=== PATIENT | female | born 1970 | race Caucasian/White ===

== ENCOUNTER 2016-11-04 06:24 | Day surgery (SDC) ==
[2016-11-04] MEDS: AK-DILATE 10% OPTH SOL OP PRN ×3 (06:48→06:58)
[2016-11-04] MEDS: OCUFEN 0.03% OPTH SOL OP PRN ×3 (06:48→07:18)
[2016-11-04] MEDS: CYCLOGYL 2% OPTH OP PRN ×3 (06:48→06:58)
[2016-11-04] MEDS: TETRACAINE 0.5% UNIT-DOSE OP PRN ×4 (06:48→07:18)
[2016-11-04] MEDS ORDERED: TETRACAINE 0.5% OPTH SOL OP ONE (06:52)
[2016-11-04] MEDS ORDERED: LIDOCAINE 1% 20 ML MDV ID ONE (06:53)
[2016-11-04] MEDS ORDERED: BETADINE OPTH PREP OP ONE (07:58)
[2016-11-04] MEDS ORDERED: VERSED ONE (08:00)
[2016-11-04] MEDS ORDERED: SUBLIMAZE ONE (08:00)
[2016-11-04] MEDS ORDERED: LIDOCAINE 1 % AMP 5 ML (SUTURES) INJ ONE (08:00)
[2016-11-04] MEDS ORDERED: DIPRIVAN 20 ML VIAL IVP ONE (08:00)
[2016-11-04] MEDS ORDERED: EPINEPHRINE 1:1,000 AMP IR ONE (08:10)
[2016-11-04] MEDS ORDERED: TIMOPTIC 0.5% OPTH OP ONE (08:12)
[2016-11-04] MEDS ORDERED: DIAMOX ONE (08:45)
[2016-11-04] MEDS ORDERED: DIAMOX PO ONE (08:45)
[2016-11-04 09:16] VITALS: BP 119/78; TEMP 98
--- NOTE | 2016-11-05 10:10 | OP ---
PREOPERATIVE DIAGNOSIS: POSTERIOR SUBCAPSULAR CATARACT, LEFT EYE. POSTOPERATIVE DIAGNOSIS: SAME. OPERATION PHACOEMULSIFICATION ASPIRATION OF CATARACT LEFT EYE. PLACEMENT OF POSTERIOR CHAMBER LENS. PHACO TIME 6.8 SECONDS AT 3% POWER. LENS MODEL TECHA [id number]. DIOPTER +24.5D. TECHNIQUE: CLEAR CORNEA. ANESTHESIA: TOPICAL ANESTHESIA W/ANESTHESIA MONITORING. OPERATIVE REPORT: Topical anesthesia consisting of Tetracaine was applied to the cornea and Xylocaine Methyl Paraben free of MFP was injected intracamerally into the anterior chamber. The patient was then brought into the operating room , prepped and draped in the usual ophthalmic manner. A lid speculum was placed and the operating microscope was used. A paracentesis was made at the 3 o' clock position. A clear corneal incision was made just out to the limbus. The anterior chamber was entered just inside the clear cornea. Viscoelastic was injected into the anterior chamber. A capsulotomy was performed with a bent # 27 gauge needle. Phacoemulsification was then performed in the posterior chamber. After completion of the phacoemulsification, residual cortical material was aspirated with the irrigation-aspiration system. The posterior capsule was polished. Viscoelastic was injected into the anterior and posterior chambers to inflate the capsular bag. Lens were placed via an Unfolder system and stabilized in the bag. Viscoelastic was removed from the anterior chamber. The wound was checked for any leakage. The four sponges were removed from the fornix. Topical antibiotic steroid and nonsteroidal drops were also applied to the cornea. A Mckenzie shield was applied. The patient left the operating room in good condition without any complications. INTRAOPERATIVE MEDICATIONS: Xylocaine Methyl Paraben Free MPF MTDD
== END 2016-11-04 09:30 | disposition home or self-care (01) ==
LOC: SURG 06:24
PROVIDERS: ATTEND Ophthalmology
DX: H25.042 Posterior subcapsular polar age-related cataract, left eye (principal)

== ENCOUNTER 2016-12-02 06:31 | Day surgery (SDC) ==
[2016-12-02] MEDS: CYCLOGYL 2% OPTH OP PRN ×3 (06:58→07:10)
[2016-12-02] MEDS: TETRACAINE 0.5% UNIT-DOSE OP PRN ×3 (06:58→07:30)
[2016-12-02] MEDS: OCUFEN 0.03% OPTH SOL OP PRN ×3 (06:58→07:30)
[2016-12-02] MEDS: AK-DILATE 10% OPTH SOL OP PRN ×3 (06:58→07:10)
[2016-12-02] MEDS ORDERED: LIDOCAINE 1% 20 ML MDV ID ONE (07:20)
[2016-12-02] MEDS ORDERED: LIDOCAINE 1% 20 ML MDV ONE (07:20)
[2016-12-02] MEDS ORDERED: VERSED ONE (07:40)
[2016-12-02] MEDS ORDERED: BETADINE OPTH PREP OP ONE (07:55)
[2016-12-02] MEDS ORDERED: LIDOCAINE 1 % AMP 2 ML (SUTURES) INJ ONE (08:00)
[2016-12-02] MEDS ORDERED: ADRENALIN 1:1000 SDV IR ONE (08:00)
[2016-12-02] MEDS ORDERED: TIMOPTIC 0.5% OPTH OP ONE (08:18)
[2016-12-02] MEDS ORDERED: DIAMOX ONE (08:51)
[2016-12-02] MEDS ORDERED: DIAMOX PO ONE (08:51)
[2016-12-02 09:09] VITALS: BP 122/86; TEMP 98.2
--- NOTE | 2016-12-02 12:49 | OP ---
PREOPERATIVE DIAGNOSIS:Advanced Cortical Cataract and Posterior subcapsular cortical right eye 2+ Cortical and 2+ posterior subcapsular cortical. POSTOPERATIVE DIAGNOSIS: SAME. OPERATION PHACOEMULSIFICATION ASPIRATION OF CATARACT RIGHT EYE. PLACEMENT OF POSTERIOR CHAMBER LENS. PHACO TIME 2.5 SECONDS AT 0% POWER. LENS MODEL MARC [id number]. DIOPTER 24.0D. TECHNIQUE: CLEAR CORNEA. ANESTHESIA: TOPICAL ANESTHESIA W/ANESTHESIA MONITORING. OPERATIVE REPORT: Topical anesthesia consisting of Tetracaine was applied to the cornea and Xylocaine Methyl Paraben free of MFP was injected intracamerally into the anterior chamber. The patient was then brought into the operating room , prepped and draped in the usual ophthalmic manner. A lid speculum was placed and the operating microscope was used. A paracentesis was made at the 3 o' clock position. A clear corneal incision was made just out to the limbus. The anterior chamber was entered just inside the clear cornea. Viscoelastic was injected into the anterior chamber. A capsulotomy was performed with a bent # 27 gauge needle. Phacoemulsification was then performed in the posterior chamber. After completion of the phacoemulsification, residual cortical material was aspirated with the irrigation-aspiration system. The posterior capsule was polished. Viscoelastic was injected into the anterior and posterior chambers to inflate the capsular bag. Lens were placed via an Unfolder system and stabilized in the bag. Viscoelastic was removed from the anterior chamber. The wound was checked for any leakage. The four sponges were removed from the fornix. Topical antibiotic steroid and nonsteroidal drops were also applied to the cornea. A Mckenzie shield was applied. The patient left the operating room in good condition without any complications. INTRAOPERATIVE MEDICATIONS: Xylocaine Methyl Paraben Free MPF MTDD
== END 2016-12-02 09:22 | disposition home or self-care (01) ==
LOC: SURG 06:31
PROVIDERS: ATTEND Ophthalmology
DX: H26.8 Other specified cataract (principal); H25.041 Posterior subcapsular polar age-related cataract, right eye

== ENCOUNTER 2017-01-29 08:39 | Emergency (ER) ==
[2017-01-29 08:45] VITALS: BP 139/83; TEMP 97.7; BMI 32.9
[2017-01-29] MEDS ORDERED: ZOFRAN 4 MG/2 ML IVP STA (08:47)
[2017-01-29] MEDS ORDERED: MORPHINE 2 MG/ML SYRINGE IVP STA ×2 (08:47→10:28)
[2017-01-29] MEDS ORDERED: IMITREX SUBCUT STA ×2 (09:01)
--- NOTE | 2017-01-29 09:11 | ED.PDOC ---
General ED Provider: Dr. MOUNA TORRES JR Chief Complaint: Headache Stated Complaint: I have not had a headache this bad in about 8 years- helps to go to bed and sleep; woke up with headache, to work worse, nauseated dry heaves light sensitivity[End]97.7 88 20 100% 139/83 07/01 took motrin and zyrtec has had ultram today nauseated with dry heaves. light sensitivity[End] 97.7 88 20 100% 139/83 07/01 Time Seen by Physician: 09:11 Mode of Arrival: Wheelchair Information Source: Patient Exam Limitations: No limitations Primary Care Provider: KRYSTINA RICO Nursing and Triage Documentation Reviewed and Agree: No Review of Systems - Review Of Systems Constitutional: Reports: No symptoms Eyes: Reports: Photophobia Ears, Nose, Mouth, Throat: Reports: No symptoms Respiratory: Reports: No symptoms Cardiac: Reports: No symptoms GI: Reports: Nausea : Reports: No symptoms Musculoskeletal: Reports: No symptoms Skin: Reports: No symptoms Neurological: Reports: Headache (migraines frontal occipital retro-orbital on right side) Endocrine: Reports: No symptoms Hematologic/Lymphatic: Reports: No symptoms All Other Systems: Other Past Medical History - Past Medical History Previously Healthy: Yes Endocrine: Reports: None Cardiovascular: Reports: None Respiratory: Reports: None Hematological: Reports: None Gastrointestinal: Reports: None Genitourinary: Reports: None Neuro/Psych: Reports: Migraine Musculoskeletal: Reports: None Cancer: Reports: None Last Menstrual Period: none Other Pertinent Past Medical History: fibromyalgia, restless legs - Surgical History General Surgical History: Reports: Hysterectomy (transvaginal tape), Cholecystectomy, Gastric Sleeve (gastric band then sleeve), Other (bilateral cataracts) - Family History Family History: Reports: Unknown - Social History Smoking Status: Never smoker Hx Substance Use: No Alcohol Screening: None Physical Exam - Physical Exam Appearance: Ill-appearing Pain Distress: Moderate Eyes: ANAY, EOMI, Conjunctiva clear ENT: Ears normal, Nose normal, Oropharynx normal Neck: Supple Respiratory: Airway patent, Breath sounds clear, Breath sounds equal, Respirations nonlabored Cardiovascular: RRR, Pulses normal, No rub, No murmur GI/: Soft, Nontender, No masses, Bowel sounds normal, No Organomegaly Musculoskeletal: Normal strength, ROM intact, No edema, No calf tenderness Skin: Warm, Dry, Normal color Neurological: Sensation intact, Motor intact, Reflexes intact, Cranial nerves intact, Alert, Oriented Psychiatric: Affect appropriate, Mood appropriate Re-Evaluation - Re-Evaluation Time of Re-Evaluation: 10:35 Status: Improved (minimal improvement) Vital Signs Stable: Yes Critical Care Note - Critical Care Note Total Time (mins): 0 Course - Course Orders, Labs, Meds: Orders Category Date Time Status ED IV/MEDIPORT/POWERPORT .ONCE EMERGENCY 01/29/17 09:01 Active 0.9 % Sodium Chloride [Saline Flush] MEDS 01/29/17 09:01 Active 1 syr IVF PRN PRN Morphine Sulfate [Morphine 2 mg/ml Syringe] MEDS 01/29/17 08:47 Discontinued 2 mg IVP ONCE STA Morphine Sulfate [Morphine 2 mg/ml Syringe] MEDS 01/29/17 10:28 Discontinued 2 mg IVP ONCE STA Ondansetron HCl/Pf [Zofran 4 mg/2 ml] MEDS 01/29/17 08:47 Discontinued 4 mg IVP ONCE STA Sumatriptan Succinate [Imitrex] MEDS 01/29/17 09:01 Discontinued 6 mg SUBCUT ONCE STA Sumatriptan Succinate [Imitrex] MEDS 01/29/17 09:01 Discontinued [address] ONCE STA CT HEAD W/O CONTRAST Stat RADS 01/29/17 09:10 Completed Medications Generic Name Dose Route Start Last Admin Trade Name Freq PRN Reason Stop Dose Admin Sodium Chloride 1 syr 01/29/17 09:01 Saline Flush IVF PRN PRN To flush IV Discontinued Medications Generic Name Dose Route Start Last Admin Trade Name Freq PRN Reason Stop Dose Admin Morphine Sulfate 2 mg 01/29/17 08:47 01/29/17 09:21 Morphine 2 Mg/Ml Syringe IVP 01/29/17 08:48 2 mg ONCE STA Administration Morphine Sulfate 2 mg 01/29/17 10:28 01/29/17 10:33 Morphine 2 Mg/Ml Syringe IVP 01/29/17 10:29 2 mg ONCE STA Administration Ondansetron HCl 4 mg 01/29/17 08:47 01/29/17 09:21 Zofran 4 Mg/2 Ml IVP 01/29/17 08:48 4 mg ONCE STA Administration Sumatriptan Succinate 6 mg 01/29/17 09:01 01/29/17 09:23 Imitrex SUBCUT 01/29/17 09:02 Not Given ONCE STA Sumatriptan Succinate 6 mg 01/29/17 09:01 01/29/17 09:23 Imitrex SUBCUT 01/29/17 09:02 Not Given ONCE STA Vital Signs: Temp Pulse Resp BP Pulse Ox 01/29/17 08:39 97.7 F 88 20 139/83 100 Departure - Departure Time of Disposition: 11:07 Disposition: HOME SELF-CARE Discharge Problem: Headache Instructions: Migraine Headache (ED) Condition: Good Pt referred to PMD for follow-up: Yes Additional Instructions: no driving for four hours may take two ultram if headache- inform PMD each time you use it for a headache recheck PMD discuss headaches Allergies/Adverse Reactions: Allergies No Known Allergies Allergy (Verified 01/29/17 08:46) Home Medications: Ambulatory Orders Milnacipran HCl [Savella] 50 mg PO BID 01/29/17 Pramipexole Di-HCl [Mirapex] 0.25 mg PO BEDTIME 01/29/17 Tramadol HCl 50 mg PO BID 01/29/17 Disposition Discussed With: Patient
--- NOTE | 2017-01-29 10:05 | CT ---
EXAM: CT BRAIN HISTORY: Recurrent headache TECHNIQUE: CT brain without intravenous contrast. 5-mm axial sections with Reformations. COMPARISON: None FINDINGS: Brain is unremarkable without distinct evidence of hemorrhage or large vessel distribution recent ischemic infarction. There is no suggestion of acute hydrocephalus or subdural fluid collection. N o mass or mass effect. Cranium is within normal limits. Mastoid air cells are aerated. The visualized paranasal sinuses are clear. IMPRESSION: No acute intracranial process.
[2017-01-29] MEDS ORDERED: MORPHINE 4 MG/ML SYRINGE IVP STA (10:27)
== END 2017-01-29 11:55 | disposition home or self-care (01) ==
LOC: ED 08:39
DX: R51 Headache (principal)
CPT/HCPCS: 96374; 96375; 96376; 99283

== ENCOUNTER 2017-07-10 14:26 | Outpatient (CLI) ==
--- NOTE | 2017-07-11 08:49 | MAMMO ---
EXAM: Bilateral digital screening mammogram (2-D and 3-D) History: Screening Comparison: Bilateral mammogram 06/30/2015 Technique: MLO and CC views of bilateral breasts demonstrate scattered fibroglandular breast parench yma. CAD was reviewed by the radiologist. Tomosynthesis was performed. There are no dominant hcris s, no suspicious microcalcifications and no architectural distortions Impression: Stable negative mammogram. Recommend followup routine screening mammography in 1 year. BIRADS 1
== END 2017-07-10 14:27 | disposition home or self-care (01) ==
LOC: RAD 14:26
PROVIDERS: ATTEND Internal Medicine
DX: Z12.31 Encounter for screening mammogram for malignant neoplasm of breast (principal)
CPT/HCPCS: 77067

== ENCOUNTER 2017-10-03 08:34 | Emergency (ER) ==
[2017-10-03 08:35] VITALS: BMI 32.9
[2017-10-03 08:45] VITALS: BP 111/65; TEMP 96.9
--- NOTE | 2017-10-03 08:58 | ED.PDOC ---
General ED Provider: Dr. JANN AMAYA Chief Complaint: Headache Stated Complaint: Headache - Migraine Time Seen by Physician: 08:50 Mode of Arrival: Walk-In Information Source: Patient Exam Limitations: No limitations Primary Care Provider: KRYSTINA RICO Nursing and Triage Documentation Reviewed and Agree: Yes Reviewed sepsis parameters & appropriate labs ordered?: Yes System Inflammatory Response Syndrome: Not Applicable Sepsis Protocol: For patient's 13 years and over: Temp is 96.8 and below OR 101 and greater Pulse >90 BPM Resp >20/minute Acutely Altered Mental Status Are patient's symptoms suggestive of a new infection, such as: -Pneumonia -Skin, Soft Tissue -Endocarditis -UTI -Bone, Joint Infection -Implantable Device -Acute Abdominal Infection -Wound Infection -Meningitis -Blood Stream Catheter Infection -Unknown Neurological Complaint Exam - Headache Complaint/Exam Onset: Gradual Duration: continuous since onset 4 AM Symptoms Are: Worse Timing: Constant Worst Headache Ever: No Initial Severity: Mild Current Severity: Moderate Location: Diffuse Character: Reports: Throbbing Aggravating: Reports: Exertion, Bright lights Alleviating: Reports: Rest Associated Signs and Symptoms: Reports: Nausea, Vomiting Related History: Reports: Similar episode. Denies: Recent trauma, Remote trauma Related Surgical History: Reports: None Meningitis Risk Factors: Reports: None Temporal Arteritis Risk Factors: Reports: None Review of Systems - Review Of Systems Constitutional: Reports: Malaise Ears, Nose, Mouth, Throat: Reports: No symptoms Respiratory: Reports: No symptoms Neurological: Reports: Headache All Other Systems: Reviewed and Negative Past Medical History - Past Medical History Previously Healthy: Yes Endocrine: Reports: None Cardiovascular: Reports: None Respiratory: Reports: None Hematological: Reports: None Gastrointestinal: Reports: None Genitourinary: Reports: None Neuro/Psych: Reports: Migraine Musculoskeletal: Reports: None Cancer: Reports: None Last Menstrual Period: 2011 Other Pertinent Past Medical History: fibromyalgia, restless legs - Surgical History General Surgical History: Reports: Hysterectomy (transvaginal tape), Cholecystectomy, Gastric Sleeve (gastric band then sleeve), Other (bilateral cataracts) - Family History Family History: Reports: Unknown - Social History Smoking Status: Never smoker Hx Substance Use: No Alcohol Screening: None - Immunizations Tetanus Shot up to Date: Yes Physical Exam - Physical Exam Appearance: Ill-appearing Ill-appearing: Mild Pain Distress: Moderate Eyes: ANAY, EOMI, Right pupil size (6 mm), Left pupil size (6mm) Neck: Supple (chin to chest OK) Respiratory: Airway patent Cardiovascular: RRR Skin: Warm, Dry, Normal color Neurological: Sensation intact, Motor intact, Alert, Oriented Psychiatric: Affect appropriate, Mood appropriate Re-Evaluation - Re-Evaluation Time of Re-Evaluation: 09:35 Status: Improved Vital Signs Stable: Yes Appearance: NAD Neuro: Alert and Oriented X3 Critical Care Note - Critical Care Note Total Time (mins): 12 Course - Course Orders, Labs, Meds: Orders Category Date Time Status Ketorolac Tromethamine [Toradol] MEDS 10/03/17 08:55 Discontinued 60 mg IM ONCE STA Ondansetron [Zofran Odt] MEDS 10/03/17 08:55 Discontinued 4 mg PO ONCE STA Medications Discontinued Medications Generic Name Dose Route Start Last Admin Trade Name Freq PRN Reason Stop Dose Admin Ketorolac Tromethamine 60 mg 10/03/17 08:55 10/03/17 09:15 Toradol IM 10/03/17 08:56 60 mg ONCE STA Administration Ondansetron HCl 4 mg 10/03/17 08:55 10/03/17 09:16 Zofran Odt PO 10/03/17 08:56 4 mg ONCE STA Administration Vital Signs: Temp Pulse Resp BP Pulse Ox 10/03/17 08:35 96.9 F L 76 20 111/65 100 Departure - Departure Time of Disposition: 09:44 Disposition: HOME SELF-CARE Discharge Problem: Headache, migraine Instructions: Migraine Headache (ED) Condition: Stable Pt referred to PMD for follow-up: Yes IPMP verified?: Yes Additional Instructions: Rest, use norco/phenergan as needed as prescribed for pain and nausea. Follow up with primary care as needed. Prescriptions: Hydrocodone Bit/Acetaminophen [Diamond 7.5-325] 1 tab PO Q6HR PRN #12 tablet PRN Reason: pain Promethazine HCl [Phenergan Tab] 25 mg PO Q6H #10 tablet Allergies/Adverse Reactions: Allergies No Known Allergies Allergy (Verified 10/03/17 09:18) Home Medications: Ambulatory Orders Milnacipran HCl [Savella] 50 mg PO BID 01/29/17 Pramipexole Di-HCl [Mirapex] 0.25 mg PO BEDTIME 01/29/17 Tramadol HCl 50 mg PO BID 01/29/17 Hydrocodone Bit/Acetaminophen [Diamond 7.5-325] 1 tab PO Q6HR PRN #12 tablet 10/03 Promethazine HCl [Phenergan Tab] 25 mg PO Q6H #10 tablet 10/03/17 Disposition Discussed With: Patient
[2017-10-03] MEDS: TORADOL IM STA (09:15)
[2017-10-03] MEDS: ZOFRAN ODT PO STA (09:16)
== END 2017-10-03 10:00 | disposition home or self-care (01) ==
LOC: ED 08:34
DX: G43.909 Migraine, unspecified, not intractable, without status migrainosus (principal)
CPT/HCPCS: 96372; 99283

== ENCOUNTER 2019-01-06 15:00 | Outpatient (CLI) | payer OTHER ==
--- NOTE | 2019-01-08 12:19 | MAMMO ---
EXAM: Digital screening mammogram with tomosynthesis HISTORY: Screening COMPARISON: 07/10/2017 FINDINGS: Digital MLO and CC views of the right and left breast were performed. Tomosynthesis was performed. Computer aided detection utilized. There are scattered fibroglandular densities. There is no evidence for mass, asymmetry, distortion, or suspicious calcifications in either breast. IMPRESSION: 1. No evidence of malignancy in the right or left breast. 2. Annual screening mammogram is recommended in one year. BIRADS category 1, negative examination
== END 2019-01-06 15:01 | disposition home or self-care (01) ==
LOC: RAD 15:00
PROVIDERS: ATTEND Internal Medicine
DX: Z12.31 Encounter for screening mammogram for malignant neoplasm of breast (principal)